=== PATIENT | female | born 1940 | race Caucasian/White ===

== ENCOUNTER 2023-10-23 03:03 | Inpatient (IN) | payer MEDICARE, OTHER, SELFPAY ==
[2023-10-22 21:44] VITALS: BP 197/94
--- NOTE | 2023-10-22 23:46 | ED.GENMED ---
History of Present Illness
<DALLAS Quintana - Last Filed: 10/22/23 23:52>
General
Chief Complaint: Blood Pressure Problem
Source: patient
Exam Limitations: none
Time Seen by Provider: 10/22/23 22:52
Nursing documentation reviewed up to this point in time: agreed with
Travel History
Have you had any contact with someone who has COVID-19?: No
Do you have any symptoms of coronavirus? Fever > 100 degrees, chills, cough, shortness of breath, sore throat, loss of taste or smell, muscle aches, or headache?: No
History of Present Illness
History of Present Illness:
Pt is an 83 yo female with PMH of HTN, HLD, asthma, and takotsubo 2 years ago presents with chest tightness. Pt began taking Levaquin 4 days ago for sinusitis and since then, has noticed some occasional chest tightness and worsening SOB with
activity. This evening, the chest tightness was worse so she checked her BP was systolic BP was in the 190s which concerned her. Denies headache, dizziness, blurry vision. Took her usual dose of amlodipine then came to the ED. Pt has had sinus
pressure, congestion, and cough with her sinusitis. She has taken flonase and NiQuil occasionally for symptoms. Pt does not take an inhaler for her asthma. Denies chest pain, abdominal pain, nausea, vomiting, constipation, diarrhea, sore throat,
syncope.
Past History
<DALLAS Quintana - Last Filed: 10/22/23 23:52>
Past History
ED Past Medical History: Other (Hypertension, previous hernia repair, hyperlipidemia)
Social History
Tobacco: Non-smoker
Alcohol: Occasional
Employment: Employed
Family History
Family History: CAD
Review of Systems
<DALLAS Quintana - Last Filed: 10/22/23 23:52>
Review of Systems
Allergies reviewed?: Yes
All Other Systems: ROS reviewed and negative except as documented in HPI and ROS
Phy Exam
<DALLAS Quintana - Last Filed: 10/22/23 23:52>
General Physical Exam
General Presentation: well appearing and no apparent distress
General Skin: warm and dry
General Mental: alert
General Hydration: appears well hydrated
ENT Exam
ENT Exam: pharynx normal, neck supple, normocephalic, lymphnodes and swallowing well
Eye Exam
Eye Exam: PERRL and conjunctiva normal
Cardiovascular Exam
Cardiovascular Exam: regular rate/rhythm, no edema, no murmur and normal peripheral pulses
Pulmonary Exam
Pulmonary Exam: no respiratory distress, no rales, no crackles, no rhonchi, no stridor, no cough and generalized wheezing
Gastrointestinal Exam
Gastrointestinal Exam: normal bowel sounds, non tender, soft and non distended
Neurological Exam
Neurological Exam: alert, oriented x3 and speech normal
Skin Exam
Skin Exam: normal color and warm/dry
Psychiatric Exam
Psychiatric Exam: normal mood/affect
Course
<DALLAS Quintana - Last Filed: 10/22/23 23:52>
Orders/Labs/Results
Orders:
Orders
10/22/23 21:45
Electrocardiogram (*1) Urgent
Reason for Study: Other
Other Reason for Exam: Chest Tightness
10/22/23 21:46
EKG- Treatment ONCE
10/22/23 23:06
CR Chest - 2 Views Urgent
Comment:
Reason For Exam: CP
10/22/23 23:29
Ipratropium/Albuterol Sulfate [Duoneb] 3 ml INH R NOW ONE
10/22/23 23:46
Complete Blood Count/With Diff Urgent
Comprehensive Metabolic Panel Urgent
NT-proBNP Urgent
TSH Reflex To Free T4 Urgent
Troponin I Urgent
10/23/23 01:39
0.9% Sodium Chloride 1000 ml [Nss] 1,000 ml IV BOLUS
10/23/23 01:46
Aspirin Chewable [Low Strength Aspirin] 324 mg PO NOW STA
Abnormal Lab Results
10/22/23
23:46
MCH 31.6 H pg
(27.0-31.0)
MPV 11.8 H fL
(7.4-10.4)
Absolute Neuts (auto) 6.9 H 10^3/uL
(1.4-6.5)
Absolute Monos (auto) 1.0 H 10^3/uL
(0.1-0.6)
Lymphocytes % 19.2 L %
(20.5-51.1)
BUN 32 H mg/dl
(7-17)
Creatinine 2.4 H mg/dL
(0.6-1.0)
Glucose 104 H mg/dl
(70-99)
Troponin I 0.036 H* ng/ml
10/22/23 23:46
10/22/23 23:46
Vital Signs
Initial and Last Documented VS:
Initial Vital Signs
Temp Pulse Resp BP Pulse Ox
97.6 F 74 22 197/94 97
10/22/23 21:44 10/22/23 21:44 10/22/23 21:44 10/22/23 21:44 10/22/23 21:44
Last Documented Vital Signs
Temp Pulse Resp BP Pulse Ox
97.6 F 59 13 126/63 100
10/22/23 21:44 10/23/23 00:30 10/23/23 00:30 10/23/23 00:30 10/23/23 00:30
<Calli Flores, DO - Last Filed: 10/23/23 01:58>
Orders/Labs/Results
Orders:
Orders
10/22/23 21:45
Electrocardiogram (*1) Urgent
Reason for Study: Other
Other Reason for Exam: Chest Tightness
10/22/23 21:46
EKG- Treatment ONCE
10/22/23 23:06
CR Chest - 2 Views Urgent
Comment:
Reason For Exam: CP
10/22/23 23:29
Ipratropium/Albuterol Sulfate [Duoneb] 3 ml INH R NOW ONE
10/22/23 23:46
Complete Blood Count/With Diff Urgent
Comprehensive Metabolic Panel Urgent
NT-proBNP Urgent
TSH Reflex To Free T4 Urgent
Troponin I Urgent
10/23/23 01:39
0.9% Sodium Chloride 1000 ml [Nss] 1,000 ml IV BOLUS
10/23/23 01:46
Aspirin Chewable [Low Strength Aspirin] 324 mg PO NOW STA
Abnormal Lab Results
10/22/23
23:46
MCH 31.6 H pg
(27.0-31.0)
MPV 11.8 H fL
(7.4-10.4)
Absolute Neuts (auto) 6.9 H 10^3/uL
(1.4-6.5)
Absolute Monos (auto) 1.0 H 10^3/uL
(0.1-0.6)
Lymphocytes % 19.2 L %
(20.5-51.1)
BUN 32 H mg/dl
(7-17)
Creatinine 2.4 H mg/dL
(0.6-1.0)
Glucose 104 H mg/dl
(70-99)
Troponin I 0.036 H* ng/ml
10/22/23 23:46
10/22/23 23:46
Vital Signs
Initial and Last Documented VS:
Initial Vital Signs
Temp Pulse Resp BP Pulse Ox
97.6 F 74 22 197/94 97
10/22/23 21:44 10/22/23 21:44 10/22/23 21:44 10/22/23 21:44 10/22/23 21:44
Last Documented Vital Signs
Temp Pulse Resp BP Pulse Ox
97.6 F 59 13 126/63 100
10/22/23 21:44 10/23/23 00:30 10/23/23 00:30 10/23/23 00:30 10/23/23 00:30
<Calli Flores DO - Last Filed: 10/23/23 01:58>
*Radiology
Radiology exam reviewed: preliminary read by ED provider (Chest x-ray is unremarkable. Unchanged from previous.)
*Pulse Oximetry
Patient hypoxic: no
*EKG
Interpreted by ED Provider?: Yes
Interpretation: normal
Comparison EKG: no changes (Unchanged from previous December 2021)
Rate: normal
Rhythm: sinus
[place]: normal axis
Interval: normal interval
QRS Pattern: normal QRS
Ischemia: no ischemia
*Production Planning Supervisor Interpretation
Rate: normal
Interpretation: normal
Rhythm: sinus
*Critical Care Note
Total Time (30-74mins, 75-104mins- exclusive of procedures): Not Applicable
ED Attending Note
<DALLAS Quintana - Last Filed: 10/22/23 23:52>
-
Portions of this chart may have been created with voice recognition software.� Occasional wrong word or��sound alike� substitutions may have occurred due to the inherent limitations of voice recognition software.
<Calli Flores DO - Last Filed: 10/23/23 01:58>
ED Attending Note
Patient seen and examined by attending physician: Yes
I performed the substantive portion of visit, reviewed & personally made and approve the management plan that is documented in note by myself or ANUPAMA.: Yes
I performed a history and physical exam of patient and discussed management with resident, I reviewed resident's note and agree with documented findings and plan of care.: Yes
ED Attending Note:
This is an 83-year-old woman who resides at home, independently. She has history of hypertension, hyperlipidemia, asthma, history of Takotsubo's cardiomyopathy April 2021 as well as history of hypothyroidism.
She complains of 3-week history of sinus infection with moderate persistent nasal congestion, intermittent dry cough, intermittent shortness of breath. She has not had a fever. Several home COVID-19 test have been negative.
She is prescribed Symbicort inhaler which she generally does not use but has been using sporadically over the past 3 weeks for shortness of breath as well as sporadic albuterol inhaler use.
She states she eventually schedule an appointment with her primary care physician on October 19 and was diagnosed with sinusitis and placed on a 1 week course of Levaquin. With initiation of Levaquin patient has noted intermittent chest
heaviness, pressure that seemed worse and more persistent throughout the day today. No definitive aggravating nor relieving factors but she believes the chest pressure is worse generally an hour after she takes the Levaquin. Chest pressure does
not seem worse with activity, not associated with nausea nor palpitations, she denies dizziness nor lightheadedness. Chest pressure does not seem associated with shortness of breath as well.
She denies leg pain or swelling.
No recent travel.
She notes her son has somewhat similar sinus issues currently but patient symptoms began prior to his.
She has had rare similar episodes of sinus infections perhaps once every 4 to 5 years. She notes she has previously been prescribed Levaquin but it has been at least 5 to 6 years ago.
This evening with ongoing chest pressure patient checked her blood pressure and was concerned when it was elevated 190/100. She states her blood pressure is generally well-controlled. It was mildly elevated at the doctor's office on ,
150/90. She has been taking sporadic doses of NyQuil as well as 1 dose of Mucinex D and occasional Flonase.
She denies headache. Denies dizziness or lightheadedness. No vision difficulty. She has not had a fever nor chills.
83-year-old woman appears somewhat younger than stated age, she is bright and alert, pleasant, appears in no acute distress. Mild nasal, stuffy voice is noted. Able to speak in full sentences. Rare brief dry cough is noted. She is afebrile.
Initial blood pressure 197/94.
HEENT: Moderately boggy turbinates with scant clear rhinorrhea. TMs are clear bilaterally. Posterior pharynx is clear without exudate nor erythema nor ulcerations. Oral mucosa is moist. Pupils equal reactive to light, extraocular muscles intact.
Neck is supple, nontender, no adenopathy nor JVD.
Heart is regular rate and rhythm without murmur nor rub.
Lungs have scattered expiratory wheezing bilaterally throughout lung estrada. No respiratory distress.
Abdomen is soft and nontender.
Extremities without clubbing or cyanosis nor edema. Peripheral pulses are full and equal. Nontender. Good tone.
Skin is warm and dry, normal color. Good turgor. No rash.
Neuro: Awake alert and oriented x 3. No focal neurodeficits. Gait is steady.
Patient is noted to have moderate nasal, stuffy voice consistent with URI. Accelerated hypertension could certainly be secondary to current URI but with chest pressure, shortness of breath must consider ACS, CHF, pneumonia, electrolyte abnormality,
arrhythmia, acute kidney injury. Adverse reaction to Levaquin.
EKG is reassuring showing normal sinus rhythm at 65, normal axis, normal intervals, no acute ST-T wave abnormalities. Similar and unchanged from previous EKG December 2021.
Will check labs including troponin, BNP and will check chest x-ray.
Will trial DuoNeb nebulizer for wheezing.
Will initiate athletic monitor, assess for arrhythmia.
With negative home COVID testing x 3, no indication to repeat. With ongoing symptoms over the past 3 weeks, no reported fever, no indication for influenza testing at this point as well.
10/23/2023 0154 AM
Patient feeling improved after nebulizer treatment. Much less wheezing and hypertension has now normalized. She is currently chest pain-free.
Labs remarkable for moderately elevated creatinine of 2.4. Previously 0.9-1.1. BNP is normal. Troponin is borderline elevated at 0.036.
Chest x-ray is clear, no evidence of infiltrate or CHF. Normal heart size.
Due to mildly elevated troponin and complaints of chest pain must consider ACS.
Elevated troponin could also be related to acute kidney injury. Acute kidney injury could certainly be related to Levaquin thus will discontinue antibiotic and at this point no clear indication for additional antibiotic.
Will give 325 mg chewable aspirin and will give an IV dose of Decadron for wheezing, exacerbation of asthma.
Will initiate IV fluids and will plan to admit to hospitalist service; continue to trend troponin, repeat creatinine, continue nebulizer treatments.
Discharge Plan
Departure
Patient Disposition: Admit
Date of Disposition: 10/23/23
Time of Disposition: 01:53
Admit to: Telemetry
Admit to doctor: Rod
Presentation/result/management discussed w/ accepting MD/DO: Hospitalist
Condition: Fair
Discharge Problem:
Acute asthma exacerbation, Acute kidney injury, chest pain, r/o USA
Prescriptions:
No Action
levothyroxine 75 MCG tablet
75 mcg PO DAILY
brimonidine [Alphagan P] 10 ML drops
1 drp BOTH EYES BID
budesonide-formoterol [Symbicort] 1 PUFF HFA aerosol inhaler
2 puff inhalation R DAILYPRN PRN (Reason: sob)
famotidine 20 MG tablet
20 mg PO DAILY 30 Days Qty: 30 5RF
sacubitril-valsartan [Entresto] 1 TAB tablet
1 tab PO BID 30 Days Qty: 60 5RF
amlodipine 2.5 MG tablet
2.5 mg PO BID 30 Days Qty: 60 5RF
clindamycin HCl 300 MG capsule
300 mg PO TID Qty: 20 0RF
Referrals:
Elisa Sutton MD [Family Provider] -
Interventions
Interventions:
*Risk Screen - Suicide Last Done: 10/22/23 21:44
*General Assessment Last Done: 10/23/23 00:22
*Neglect/Abuse Screening Last Done: 10/22/23 21:44
ED- Fall Risk Assessment Last Done: 10/23/23 00:22
*ED COVID-19 Vaccine History Last Done: 10/23/23 00:22
ED- Cardiac Assessment Last Done: 10/23/23 00:22
ED- Neurological Assessment Last Done: 10/23/23 00:22
ED- Pulmonary Assessment Last Done: 10/23/23 00:22
[2023-10-22 23:51] VITALS: BP 153/76
[2023-10-23] VITALS (18 sets, daily range): BP systolic 118–182; BP diastolic 56–104; BMI 26.9; BMI 26.5
[2023-10-23 00:11] LABS: % Basophils 0.8 % (0-2); % Eosinophils 5.4 % (0-6); % Immature Granulocytes 0.3 % (0-0.5); % Lymphocytes 19.2 % (20.5-51.1); % Neutrophils 65.3 % (42.2-75.2); Absolute Basophils 0.1 10^3/uL (0-0.2); Absolute Eosinophils 0.6 10^3/uL (0-0.7); Absolute Neutrophils 6.9 10^3/uL (1.4-6.5); Hemoglobin 13.7 g/dL (12.0-16.0); Mean Corp Hgb Conc. 34.3 g/dL (33.0-37.0); Mean Corpuscular Hgb 31.6 pg (27.0-31.0); Mean Corpuscular Volume 92.2 fL (81.0-99.0); Mean Platelet Volume 11.8 fL (7.4-10.4); Nucleated Red Blood Cells % 0 %; Platelet Count 229 10^3/uL (130-400); Red Blood Cell Count 4.34 10^6/uL (4.20-5.40); Red Cell Dist. Width 13.7 % (11.5-14.5); White Blood Cell Count 10.6 10^3/uL (4.8-10.8)
[2023-10-23] MEDS: DUONEB 3 ML INH (00:19)
[2023-10-23 00:31] LABS: ALT (SGPT) 20 U/L (0-35); AST (SGOT) 24 U/L (14-36); Albumin 3.9 g/dl (3.5-5.0); Alkaline Phosphatase 63 U/L (38-126); Blood Urea Nitrogen 32 mg/dl (7-17); Calcium 9.6 mg/dl (8.4-10.2); Carbon Dioxide 23 mmol/L (22-30); Chloride 104 mmol/L (98-107); Glucose 104 mg/dl (70-99); Potassium 4.6 mmol/L (3.5-5.1); Sodium 141 mmol/L (135-145); Total Bilirubin 0.4 mg/dl (0.2-1.3); Total Protein 6.6 g/dl (6.3-8.2); eGFR 19.79
[2023-10-23 01:23] LABS: NT-proBNP 124 pg/ml; Troponin I 0.036 ng/ml
[2023-10-23] MEDS: DECADRON 10 MG IV (02:21)
[2023-10-23] MEDS: NSS 1000 IV (02:22)
[2023-10-23] MEDS: LOW STRENGTH ASPIRIN 324 MG PO (02:22)
--- NOTE | 2023-10-23 02:35 | HPS.HSE ---
Family Physician
-
Family Physician: Elisa Sutton MD
Chief Complaint
-
Chest Pain
History of Present Illness
Patient is an 83y F with PMH significant for Takotsubo's cardiomyopathy with recovered EF, CKD III and hypothyroidism who presents to ED complaining of chest pain. Patient states that she has had nasal congestion and sinus pressure for the past
3 weeks or so. She has noted some increased SOB - especially with activity - that she has attributed to his congestion. She has had some mild, non-productive cough. Loss of taste and smell. She denies any fevers / chills, GI or complaints.
She was seen by her PCP on and prescribed levofloxacin for a sinus infection.
Patient states that she has since developed chest tightness and worsening SOB. Her symptoms seem to occur about one hour after taking the levofloxacin.
She denies any prior history of similar symptoms.
This evening, patient developed severe chest tightness across the front of the chest / bilaterally. She had difficulty breathing.
She checked her BP at home (multiple times) and it was very elevated - as high as 195/105. Patient then presented to the ED for further evaluation.
Patient was treated in the ED with DuoNeb and steroids.
Currently she is resting comfortably. She denies any current chest pain and denies any dyspnea while at rest.
Her BP has markedly improved from initial presentation.
Medical History
Past Medical History
Past Medical History: Reports Other
Additional Past Medical History:
Takotsubo's Cardiomyopathy with Recovered EF
Glaucoma
Benign Hypertension
CKD III
Mild Intermittent Asthma
Hypothyroidism
Past Surgical History: Reports Other
Additional Past Surgical History:
Tubal Ligation
Right Inguinal Herniorrhaphy
Hammer Toe Repair
Left Knee Arthroscopy
Cardiac Cath (no stents)
Cataracts
Social History
Tobacco: Non-smoker
Alcohol: Occasional (Rarely)
Drug: None
Family History
Family History: Not pertinent
Allergies / Home Medications
Allergies reflects when Allergies were last updated in [email or web address].
Home Medications with original date entered in [email or web address]
Allergy/Medication List:
Allergies
Allergy/AdvReac Type Severity Reaction Status Date / Time
amoxicillin Allergy Unknown Verified 10/22/23 21:47
Home Medications
levothyroxine 75 mcg tablet 75 mcg PO DAILY Thyroid 04/10/15
brimonidine 0.1 % eye drops (Alphagan P) 1 drp BOTH EYES BID Eye condition 04/28/21
amlodipine 2.5 mg tablet 2.5 mg PO BID 30 days #60 tabs 04/29/21
sacubitril 49 mg-valsartan 51 mg tablet (Entresto) 1 tab PO BID 30 days #60 tabs 04/29/21
ezetimibe 10 mg tablet 10 mg PO DAILY 10/23/23
montelukast 10 mg tablet 10 mg PO HS 10/23/23
Review of Systems
-
History Source: Patient
A 12 point ROS was completed and negative except as noted: Yes
Constitutional: Reports Fatigue; Denies Fever or Chills
EENT: Reports Other (nasal congestion); Denies Sore Throat
Respiratory: Reports Cough and Trouble Breathing; Denies Hemoptysis
Cardiac: Reports Chest Pain; Denies Diaphoresis, Palpitations or Syncope
Abdomen/GI: Denies Abdominal Pain, Nausea, Vomiting or Diarrhea
: Denies Dysuria, Frequency or Flank Pain
Neurological: Denies Dizzy or Headache
Psych: Reports Anxiety; Denies Depression
Physical Exam
Vital Signs
Vital Signs
Temp Pulse Resp BP Pulse Ox
97.6 F 59 17 128/67 98
10/22/23 21:44 10/23/23 02:30 10/23/23 02:30 10/23/23 02:00 10/23/23 02:30
Physical Exam
General: Other (83y F in no distress.)
HEENT: Moist mucous membranes and PERRLA
Respiratory: Clear; No Wheezes, Rales or Rhonchi
Cardiac: S1/S2 and Regular Rhythm; No Murmur
GI: Soft, Non Tender, Non Distended and Normal Bowel Sounds
Musculoskeletal: No Clubbing, No Cyanosis and No Edema
Neuro: AO x 3
Laboratory Results
-
10/22/23 23:46
10/22/23 23:46
Laboratory Results
Total Bilirubin 0.4 mg/dl (0.2-1.3) 10/22/23 23:46
AST 24 U/L (14-36) 10/22/23 23:46
ALT 20 U/L (0-35) 10/22/23 23:46
Alkaline Phosphatase 63 U/L (38-126) 10/22/23 23:46
Troponin I 0.036 ng/ml H* 10/22/23 23:46
Impression/Plan
-
A/P: Patient is an 83y F with PMH significant for Takotsubo's cardiomyopathy, hypertension and mild intermittent asthma who presents to ED complaining of chest pain and SOB.
Chest Pain
History of Non-Ischemic Cardiomyopathy with Recovered EF
- Admit for further evaluation and treatment.
- Pain has resolved since presentation.
- Troponin mildly elevated at 0.036 - continue to trend to peak.
- EKG without evident ischemic changes.
- Monitor on telemetry.
- Continue daily ASA.
- Update Echo with chest pain and dyspnea.
- Cardiology evaluation for additional work-up / recommendations.
- ? relationship to levofloxacin as patient notes temporal association. QTc is unremarkable on initial EKG.
Accelerated Hypertension
- Marked elevation in BP at home and on presentation.
- This has completely resolved with improvement in chest pain and dyspnea.
- Continue usual home BP med regimen for now.
- Adjust as needed for adequate BP control.
- ? BP elevation secondary to chest pain or vice versa.
SOB
- Patient reportedly wheezing on arrival though her lungs are clear at present and she is in no distress.
- Has a dx of asthma, but takes only montelukast daily and never uses her rescue inhaler.
- Monitor off of systemic steroids or further abx for now.
- Follow for any recurrent dyspnea, wheezing, etc.
- Albuterol PRN.
NANCY on CKD III
- Unclear baseline SCr.
- Patient states that it has been up and down over the past few years.
- She indicates that her most recent check - in the past few months - was 'normal'.
- Hold Entresto for now.
- Follow for improvement in renal function / establish current baseline over the next 24-48 hours.
Sinus Congestion
- Discontinue abx.
- Nasal saline spray as needed for congestion.
- Follow for new / worsening symptoms.
Hypothyroidism
- Stable. TSH is normal.
- Continue current T4 replacement.
Glaucoma
- Continue Alphagan.
DVT Prophylaxis: Subcut Heparin
Code Status: Full
[2023-10-23 03:20] LABS: COVID-19 Antigen Negative (Negative)
[2023-10-23 06:03] LABS: Hematocrit 39.8 % (37.0-47.0); Hemoglobin 13.2 g/dL (12.0-16.0); Mean Corp Hgb Conc. 33.2 g/dL (33.0-37.0); Mean Corpuscular Hgb 31.3 pg (27.0-31.0); Mean Corpuscular Volume 94.3 fL (81.0-99.0); Mean Platelet Volume 11.7 fL (7.4-10.4); Platelet Count 196 10^3/uL (130-400); Red Blood Cell Count 4.22 10^6/uL (4.20-5.40); Red Cell Dist. Width 13.8 % (11.5-14.5); White Blood Cell Count 6.9 10^3/uL (4.8-10.8)
[2023-10-23 06:28] LABS: Blood Urea Nitrogen 28 mg/dl (7-17); Calcium 9.4 mg/dl (8.4-10.2); Carbon Dioxide 20 mmol/L (22-30); Chloride 107 mmol/L (98-107); Estimated Creatinine Clearance 24 ml/min; Glucose 136 mg/dl (70-99); Potassium 4.2 mmol/L (3.5-5.1); Sodium 140 mmol/L (135-145); eGFR 27.96
[2023-10-23 06:39] LABS: Troponin I 0.139 ng/ml
[2023-10-23] MEDS: ZETIA 10 MG PO (07:29)
[2023-10-23] MEDS: HEPARIN 5000 UNITS SC ×2 (07:30→19:46)
[2023-10-23] MEDS: NORVASC 2.5 MG PO ×2 (07:30→10:04)
[2023-10-23] MEDS: LOW STRENGTH ASPIRIN 81 MG PO (07:30)
[2023-10-23] MEDS: SYNTHROID 75 MCG PO (07:30)
[2023-10-23] MEDS: ALPHAGAN P 0.1% EYE DROPS 1 DROP BOTH EYES ×2 (07:31→19:46)
--- NOTE | 2023-10-23 08:45 | CON.CAR ---
Addendum entered and electronically signed by Zelalem Patel MD 10/23/23 10:26:
83 yo female with PMH of Takutsubo, with improved LVEF, HTN admitted with chest tightness, NANCY, elevated troponin. She was being treated for sinusitis with Levaquin as outpatient. She started to experience chest tightness and extreme fatigue and
presented to the ED. Exam with RRR, no murmurs, no edema.
Chest tightness. With elevated troponin. Doubt ACS. Check echo. Trend troponin.
HTN. Also with NANCY. Entresto stopped. Increase amlodipine to 5mg. Trend BP: will add hydralazine if remains high.
Original Note:
Consultation
Consultation Request
Date/Time Consultation Requested: 10/23/23 4:50a
Date/Time Consultation Performed: 10/23/23 8:30a
Requesting Provider: Dr. Velasco
Performing Provider: BLAS Barragan for Dr. Patel
Reason for Consultation: chest pain
Medical History
-
Chief Complaint: sob/chest pain
History of Present Illness:
Mrs. Qureshi is an 83 yo female with Takutsubo cardiomyopathy, EF 40% now improved to 65-70%, sinus bradycardia, HTN, PAC's, mild to moderate TR, mild pulmonary HTN, Raynaud's, mild PAD (Dr Hinkle), and asthma, who presents to the ER with c/o chest
tightness, SOB and high BP (195/105 at home). She reports having a sinus infection, symptoms for 2 weeks and started on Levaquin 4 days ago by PCP. She noted 3 days ago, after taking Levaquin, she would feel mild SOB and chest tightness at rest,
no worse with exertion. Currently denies any chest tightness or SOB at rest. She is admitted to the hospitalist service and we are consulted for chest tightness. CXR shows NAD, NANCY with creatinine initially 2.4 and now 1.8 today, EKG with NSR no
ischemia and troponin trend 0.036, 0.139.
Past Medical History
Past Medical History: Other (as above)
Past Surgical History: Gynecological (tubal ligation), Orthopedic (left knee meniscus tear repair) and Other (hernia repair)
Social History
Tobacco: Non-Smoker
Alcohol: None
Living: Alone
Family History
Family History: Reviewed & Not Pertinent
Allergies / Home Medications
Allergy/AdvReac Type Severity Reaction Status Date / Time
amoxicillin Allergy Unknown Verified 10/22/23 21:47
Medication Instructions Recorded Confirmed Type
levothyroxine 75 mcg tablet 75 mcg PO DAILY Thyroid 04/10/15 10/23/23 History
brimonidine 0.1 % eye drops 1 drp BOTH EYES BID Eye condition 04/28/21 10/23/23 History
(Alphagan P)
sacubitril 49 mg-valsartan 51 mg 1 tab PO BID 30 days #60 tabs 04/29/21 10/23/23 Rx
tablet (Entresto)
amlodipine 2.5 mg tablet 2.5 mg PO DAILY 10/23/23 10/23/23 History
ezetimibe 10 mg tablet 10 mg PO DAILY 10/23/23 10/23/23 History
montelukast 10 mg tablet 10 mg PO HS 10/23/23 10/23/23 History
Review of Systems
-
History Source: Patient
All other systems: Negative unless noted
Physical Exam
Vital Signs
Temp Pulse Resp BP Pulse Ox
97.9 F 95 18 179/84 98
10/23/23 07:15 10/23/23 08:30 10/23/23 07:15 10/23/23 07:30 10/23/23 08:36
Lab Results
10/23/23 05:37
10/23/23 05:37
Troponin I 0.139 ng/ml H* D 10/23/23 05:37
Rma-L-Drypffdwwtn Pept 124 pg/ml 10/22/23 23:46
Physical Exam
General: Well Developed, Well Nourished and No Apparent Distress
HEENT: Normocephalic, Anicteric and Moist Mucous Membranes
Respiratory: Clear and Non Labored Respirations
Cardiac: S1/S2 and Regular Rhythm
Breast: Deferred by me
GI: Soft, Non Tender, Non Distended and Normal Bowel Sounds
Rectal: Deferred by Provider
Musculoskeletal: No Clubbing, No Cyanosis and No Edema
Skin: Warm and Dry
Neuro: AO x 3
Psych: Calm
Impression / Plan
-
Chest tightness - acute non-ischemic myocardial injury in the setting of NANCY.
- occurs at rest, not with exertion.
- EKG w/o ischemia.
- denies chest tightness or SOB at rest.
- check echo.
HTN - elevated upon arrival.
- continue Amlodipine 2.5mg, ordered BID now and she takes it daily at home.
- previously on BID dosing and experienced symptomatic hypotension.
- monitor closely, especially with Entresto being held.
Takotsubo cardiomyopathy - resolved with normalized EF.
- Entresto on hold due to NANCY.
- no BB due to sinus bradycardia.
NANCY - acute.
- creatinine 2.4 on arrival.
- now down to 1.8.
- holding Entresto.
HLD - stable on Zetia.
Asthma/sinus infection - per hospitalist.
Data Reviewed
-
EKG: Tracing Personally Visualized and interpreted (EKG: sinus rhythm with sinus arrhythmia 68 bpm, no ischemia)
Radiology: Report Reviewed by me (CXR NAD)
Medical Tests (Nuc Med, Echo etc): Report Reviewed by me (Echo (07/29/21): EF 65-70%, mild MR, nl RV, mild TR, PASP 45) and Other (Cath (04/28/21): no CAD, separate ostia of LAD and Lcx noted, EF 35%. Lexiscan nuclear stress (03/05/21): no CP or EKG
changes, normal perfusion, EF 60%. )
Labs: Labs Reviewed by me
Old Records: Reviewed
[2023-10-23 09:49] LABS: Urine Albumin Negative (Neg - Trace); Urine Bilirubin Negative (Negative); Urine Character Clear (Clear); Urine Color Yellow; Urine Glucose Negative (Negative); Urine Ketone Negative (Negative); Urine Leukocyte Negative (Negative); Urine Nitrite Negative (Negative); Urine Occult Blood Trace (Negative); Urine Specific Gravity 1.015 (<1.030); Urine Urobilinogen Negative (Neg - 1+)
[2023-10-23 10:13] LABS: Urine Red Blood Cell 0-2 /HPF (0-2)
--- NOTE | 2023-10-23 12:27 | PTCARENOTE ---
Rec'd pt this shift awake and alert in bed. Pt NSR on monitor. BP elevated this am. AM meds given. Troponin sent. See worklist for VS/I and O and assessments.
[2023-10-23] MEDS: APRESOLINE 10 MG PO ×3 (12:31→22:17)
[2023-10-23 12:34] LABS: Troponin I 0.082 ng/ml
--- NOTE | 2023-10-23 13:25 | CM ---
Chart reviewed. Patient is independent of ADLS, lives alone in a 2 STH, 1 NILDA, 0 DME. Patient currently with no discharge needs. Plan is for the patient to return home. CM to follow
--- NOTE | 2023-10-23 16:19 | W.PN.UPDATE ---
Update Note
Progress Note Update
Patient seen and examined at bedside today. This note serves as supplemental to already noted history and physical today. Doubt ACS. Check echocardiogram. Trend troponin until plateaus. Noted to have NANCY, holding nephrotoxic agents including
Entresto. Blood pressure control, increase amlodipine to 5 mg. Shortness of breath improved, most likely secondary to hypertensive urgency. Chest pain, noted to be chest tightness rather than chest pain as per patient.
--- NOTE | 2023-10-23 17:26 | PTCARENOTE ---
Pt states she was on Antibiotics for sinusitis. Dr. Montanez notified and aware. As per , pt does not need antibiotic at this time.
[2023-10-23] MEDS: TYLENOL 650 MG PO (19:46)
[2023-10-23] MEDS: SINGULAIR 10 MG PO (22:17)
[2023-10-23] MEDS: VENTOLIN NEBULES 2.5 MG INH (22:31)
[2023-10-24] VITALS (8 sets, daily range): BP systolic 121–166; BP diastolic 65–87; PULSE 65–76; BMI 26.4
[2023-10-24 03:45] LABS: Hematocrit 39.1 % (37.0-47.0); Hemoglobin 13.3 g/dL (12.0-16.0); Mean Platelet Volume 11.8 fL (7.4-10.4); Platelet Count 211 10^3/uL (130-400); Red Blood Cell Count 4.16 10^6/uL (4.20-5.40); Red Cell Dist. Width 13.9 % (11.5-14.5)
[2023-10-24 04:13] LABS: Blood Urea Nitrogen 25 mg/dl (7-17); Calcium 9.6 mg/dl (8.4-10.2); Carbon Dioxide 22 mmol/L (22-30); Chloride 104 mmol/L (98-107); Estimated Creatinine Clearance 43 ml/min; Glucose 127 mg/dl (70-99); Magnesium 2.1 mg/dl (1.6-2.3); Potassium 4.4 mmol/L (3.5-5.1); Sodium 138 mmol/L (135-145)
--- NOTE | 2023-10-24 05:26 | PTCARENOTE ---
Orthos obtained per order--negative. Pt denies any chest pain or tightness. Tele remains Beny/ sinus arrhythmia. Patient ambulating self in room, denies any dizziness. Call packer within reach.
--- NOTE | 2023-10-24 08:07 | W.PN.CD ---
Today's Communication / Plan
-
- increase hydralazine while amlodipine comes on board
- no further inpatient workup anticipated and I will sign off
- MEDS: amlodipine 5 po qd, hydralazine 25 po TID, ASA 81, Zetia 10 (hold Entresto)
- Follow up: Nov 07 at 10:40 with Max Blount
Impression / Plan
-
83 yo female with PMH of Takutsubo, with improved LVEF, HTN admitted with chest tightness, NANCY, elevated troponin. She was being treated for sinusitis with Levaquin as outpatient.� She started to experience chest tightness and extreme fatigue and
presented to the ED.�
Chest tightness - acute non-ischemic myocardial injury in the setting of NANCY & hypertension. [facility] 2020 normal coronaries
- peak troponin 0.129
- Echo without WMA
- treat BP
HTN - elevated
- ARNi held for NANCY
- increase hydralazine while amlodipine comes on board
Takotsubo cardiomyopathy - resolved with normalized EF.
- Entresto on hold due to NANCY.
- no BB due to sinus bradycardia.
NANCY - acute.
- creatinine 2.4 on arrival. Now 1.0
- holding Entresto.
HLD - stable on Zetia.
Asthma/sinus infection - per hospitalist.
Dispo
- no further inpatient workup anticipated and I will sign off
- MEDS: amlodipine 5 po qd, hydralazine 25 po TID, ASA 81, Zetia 10 (hold Entresto)
- Follow up: Nov 07 at 10:40 with Max Blount
Subjective: No CP, palps. Still with will dyspnea that she feels us due to sinusitis
Data
TTE Oct 23: Normal
[facility] 2020: normal coronaries, EF 35% with Takotsubo pattern
Laboratory Data
10/23/23 10/24/23
05:37 03:32
Hgb 13.3
Creatinine 1.0
Troponin I 0.139 H* D
Selected Entries
10/23/23
22:17 10/24/23
03:21 10/24/23
03:24
Blood pressure 163/80 163/71 159/82
10/24/23
03:26
Blood pressure 166/87
Generic Name Dose Route Start Last Admin
Trade Name Elsa PRN Reason Stop Dose Admin
Ezetimibe 10 mg 10/23/23 08:00
Ezetimibe (Zetia) 10 Mg Tablet PO 11/20/23 07:59
DAILY DELFINA
Aspirin 81 mg 10/23/23 08:00
Aspirin 81 Mg Chewable Tablet PO 11/20/23 07:59
DAILY DELFINA
Amlodipine Besylate 5 mg 10/24/23 08:00
Amlodipine 5 Mg Tablet PO 11/21/23 07:59
DAILY DELFINA
Hydralazine HCl 10 mg 10/23/23 16:00
Hydralazine 10 Mg Tablet PO 11/20/23 15:59
TID DELFINA
Physical Exam
Vital Signs/Labs
Vital Signs
Temp Pulse Resp BP Pulse Ox
36.6 C 75 18 166/87 98
10/24/23 03:21 10/24/23 03:26 10/24/23 03:21 10/24/23 03:26 10/24/23 03:21
10/23/23 10/24/23 10/25/23
06:59 06:59 06:59
Actual Weight 169 lb 1.513 oz 168 lb 3.403 oz
10/24/23 03:32
10/24/23 03:32
Magnesium 2.1 mg/dl (1.6-2.3) 10/24/23 03:32
10/22/23
23:46
Wmw-G-Anorzwsimwr Pept 124
LAB Results
10/22/23 10/23/23 10/23/23
23:46 05:37 11:42
Troponin I 0.036 H* 0.139 H* D 0.082 H* D
10/23/23
18:28
Troponin I Cancelled
Physical Exam
Constitutional: No acute distress
EENT: Anicteric and Moist mucous membranes
Cardiovascular: Rhythm & rate is regular, Pedal edema is absent, Systolic murmur absent and Diastolic murmur absent
Respiratory: Respiratory effort normal
GI: Soft, Distention absent, Non tender and Normal bowel sounds
Neuro/Psych: Alert
Other: Skin
Data Reviewed
-
Date of Service: October 24, 2023
[2023-10-24] MEDS: ALPHAGAN P 0.1% EYE DROPS 1 DROP BOTH EYES (08:47)
[2023-10-24] MEDS: SYNTHROID 75 MCG PO (08:49)
[2023-10-24] MEDS: LOW STRENGTH ASPIRIN 81 MG PO (08:50)
[2023-10-24] MEDS: NORVASC 5 MG PO (08:50)
[2023-10-24] MEDS: ZETIA 10 MG PO (08:50)
[2023-10-24] MEDS: HEPARIN 5000 UNITS SC (09:16)
[2023-10-24] MEDS: APRESOLINE 25 MG PO ×2 (10:28→15:20)
[2023-10-24] MEDS: APRESOLINE PO (10:30)
--- NOTE | 2023-10-24 10:42 | CM ---
Chart reviewed. Patient is independent of ADLS, lives alone in a 2 STH, 1 NILDA, 0 DME. Patient currently with no discharge needs. CM to follow
--- NOTE | 2023-10-24 14:49 | W.PN.HOSP.TC ---
Addendum entered and electronically signed by Harsha Montanez MD 10/27/23 15:59:
Non IA troponin elevation
Addendum entered and electronically signed by Harsha Montanez MD 10/25/23 17:16:
[id number]
Original Note:
Today's Communication/Plan
-
Aspirin, hydralazine 20 mg 3 times daily, amlodipine 5 mg daily
Follow cardiology outpatient
Follow CBC, BMP outpatient
Follow PCP within 1 week
Assessment / Plan
Assessment / Plan
Constitutional: No acute distress
EENT: Anicteric and Moist mucous membranes
Cardiovascular: Rhythm & rate is regular, Pedal edema is absent, Systolic murmur absent and Diastolic murmur absent
Respiratory: Respiratory effort normal
GI: Soft, Distention absent, Non tender and Normal bowel sounds
Neuro/Psych: Alert
Other: Skin
A/P:� Patient is an 83y F with PMH significant for Takotsubo's cardiomyopathy, hypertension and mild intermittent asthma who presents to ED complaining of chest pain and SOB.
Chest tightness
History of Non-Ischemic Cardiomyopathy with Recovered EF
�-Echo without wall motion abnormality
� Most likely secondary to elevated blood pressures
� Treat hypertension
#Hypertensive urgency
� Holding ARNI
� Increase amlodipine to 5 mg daily
Increase hydralazine 25 mg 3 times daily
� Follow cardiology outpatient
#Leukocytosis
� No evidence of infection, follow-up CBC outpatient
#NANCY on CKD 3
� Holding Entresto
Suspect due to hypertension
� Follow BMP outpatient, can resume as per cardiology
#Takotsubo's cardiomyopathy
Resolved with normal EF
� Holding Entresto due to NANCY
� No beta-delia due to sinus bradycardia
Sinus Congestion
�- Discontinue abx. Educated that patient received 4 days antibiotics and most likely will not need further antibiotics. If symptoms begin again, follow-up PCP for repeat Thomas course of antibiotics
Hypothyroidism
�- Stable.� TSH is normal.
�- Continue current T4 replacement.
Glaucoma
�- Continue Alphagan.
DVT Prophylaxis:� Subcut Heparin
Code Status:� Full
More than 30 minutes spent in discharge including
Final examination of the patient
Summarizing hospital stay
Instructions for continuing care to all relevant caregivers
Preparation of discharge records, prescriptions, and referral forms
Total time spent (35 in minutes):
Anticipated Discharge: Today
Subjective/Interval History
-
Date of Service: October 24, 2023
No acute events overnight
Objective Data
-
Labs:
Laboratory Results
10/24/23
03:32
WBC 11.0 H
Hgb 13.3
Hct 39.1
Plt Count 211
Sodium 138
Potassium 4.4
Chloride 104
Carbon Dioxide 22
BUN 25 H
Creatinine 1.0
Glucose 127 H
Calcium 9.6
Vital Signs:
Vital Signs
Temp Pulse Resp BP Pulse Ox
97.8 F 58 20 121/65 97
10/24/23 12:50 10/24/23 12:53 10/24/23 12:50 10/24/23 12:53 10/24/23 12:53
I&O
10/23/23 10/24/23 10/25/23
06:59 06:59 06:59
Intake Total 1750 / 1750
Balance 1750 / 1750
Review of Systems
-
History Source: Patient
All other systems: Not reviewed unless documented
Data Reviewed
-
Diagnostic Radiology: Image personally visualized and interpreted and Report Reviewed by me
Labs: Labs Reviewed by me
--- NOTE | 2023-10-24 14:53 | W.DS.TRANS ---
DC Summary - Race [employer]
-
Discharge Instructions:
Discharge Diagnosis/Procedures Chest tightness
History of Non-Ischemic Cardiomyopathy with
Recovered EF
Hypertensive urgency
Diet Low Fat,Low Cholesterol
Activity As tolerated
Blood Work cbc, bmp in 3-5 days with pcp
Instructions:
Stand-Alone Forms:
Changes to Home Medications: Yes
Discharge Medications:
DC Medications w/original date entered in [facility]
levothyroxine 75 mcg tablet 75 mcg PO DAILY Thyroid 04/10/15
brimonidine 0.1 % eye drops (Alphagan P) 1 drp BOTH EYES BID Eye condition 04/28/21
sacubitril 49 mg-valsartan 51 mg tablet (Entresto) 1 tab PO BID 30 days #60 tabs 04/29/21
ezetimibe 10 mg tablet 10 mg PO DAILY High Cholesterol 10/23/23
montelukast 10 mg tablet 10 mg PO HS Allergies 10/23/23
amlodipine 5 mg tablet 5 mg PO DAILY 30 days #30 tabs 10/24/23
aspirin 81 mg chewable tablet (Children's Aspirin) 81 mg PO DAILY 30 days #30 tabs 10/24/23
hydralazine 25 mg tablet 25 mg PO TID 30 days #90 tabs 10/24/23
Home Medication Changes
Hold Entresto
Start:
amlodipine 5 mg tablet 5 mg PO DAILY 30 days #30 tabs 10/24/23
aspirin 81 mg chewable tablet (Children's Aspirin) 81 mg PO DAILY 30 days #30 tabs 10/24/23
hydralazine 25 mg tablet 25 mg PO TID 30 days #90 tabs 10/24/23
Pending Results: No
--- NOTE | 2023-10-25 08:21 | PN.CDI ---
CDI
- -
CDI:
Physician Documentation Request
Admit Date: 10/23/23 03:03
Dear Doctor Tarik,
Patient admitted with hypertensive urgency and NANCY.
Patient experienced chest tightness.
Troponin's resulted as follows:
Laboratory Tests
10/22/23 10/23/23 10/23/23
23:46 05:37 11:42
Troponin I 0.036 H* 0.139 H* D 0.082 H* D
Based on the above, could you provide a diagnosis for the elevated troponin:
Non HI troponin elevation
Type II HI demand ischemia
Other
Use of terms such as suspected, likely, concern for, or probable (associated with a specific diagnosis that is being evaluated, monitored, or treated as if it exists) are acceptable and can be coded in the inpatient setting, when documented at the
time of discharge.
Thank you,
Leila Ayala RN, BSN
CDI Specialist
tiger text
Please use your independent medical judgment in providing your response.
== END 2023-10-24 15:49 | disposition home or self-care (01) | DRG 683 ==
LOC: IVU 03:03
PROVIDERS: ADMITTING PHYSICIAN Hospitalist; ATTENDING PHYSICIAN Internal Medicine; EMERGENCY PHYSICIAN Emergency Medicine; FAMILY PHYSICIAN Emergency Medicine; OTHER PHYSICIAN Internal Medicine
DX: I12.9 Hypertensive chronic kidney disease with stage 1 through stage 4 chronic kidney disease, or unspecified chronic kidney disease (principal); I51.81 Takotsubo syndrome; N17.9 Acute kidney failure, unspecified; J45.21 Mild intermittent asthma with (acute) exacerbation; I5A Non-ischemic myocardial injury (non-traumatic); N18.30 Chronic kidney disease, stage 3 unspecified; E03.9 Hypothyroidism, unspecified; H40.9 Unspecified glaucoma; E78.5 Hyperlipidemia, unspecified; I16.0 Hypertensive urgency
CPT/HCPCS: 71046; 80048; 80053; 81003; 81015; 83735; 83880; 84443; 84484; 85025; 85027; 87811; 93005; 93306; 94640; 96361; 96374; 99285

== ENCOUNTER 2023-10-28 20:34 | Emergency (ER) | payer MEDICARE, OTHER, SELFPAY ==
[2023-10-28 20:34] VITALS: BMI 27.3
[2023-10-28 20:40] VITALS: BP 186/85
[2023-10-28 21:43] LABS: % Eosinophils 6.8 % (0-6); % Immature Granulocytes 0.4 % (0-0.5); % Lymphocytes 28.7 % (20.5-51.1); % Monocytes 10.1 % (1.7-9.3); Absolute Basophils 0.1 10^3/uL (0-0.2); Absolute Eosinophils 0.5 10^3/uL (0-0.7); Absolute Lymphocytes 2.2 10^3/uL (1.2-3.4); Absolute Monocytes 0.8 10^3/uL (0.1-0.6); Absolute Neutrophils 4.1 10^3/uL (1.4-6.5); Hematocrit 38.8 % (37.0-47.0); Hemoglobin 13.2 g/dL (12.0-16.0); Mean Corpuscular Hgb 31.7 pg (27.0-31.0); Mean Corpuscular Volume 93.3 fL (81.0-99.0); Mean Platelet Volume 11.7 fL (7.4-10.4); Nucleated Red Blood Cells % 0 %; Platelet Count 217 10^3/uL (130-400); Red Blood Cell Count 4.16 10^6/uL (4.20-5.40); Red Cell Dist. Width 13.7 % (11.5-14.5); White Blood Cell Count 7.6 10^3/uL (4.8-10.8)
--- NOTE | 2023-10-28 21:54 | ED.GENMED ---
History of Present Illness
General
Chief Complaint: Blood Pressure Problem
Source: patient and family (Daughter)
Exam Limitations: none
Time Seen by Provider: 10/28/23 21:29
Nursing documentation reviewed up to this point in time: agreed with
Travel History
Have you had any contact with someone who has COVID-19?: No
Do you have any symptoms of coronavirus? Fever > 100 degrees, chills, cough, shortness of breath, sore throat, loss of taste or smell, muscle aches, or headache?: No
History of Present Illness
History of Present Illness:
83-year-old female with a past medical history of hypertension and hyperlipidemia who presents to the emergency room for evaluation of hypertension. Patient was notably just admitted to this hospital 10/23/2023 until 10/24/2023. She was admitted
with some mild chest pain and marginal troponin elevation but mainly for hypertensive urgency (elevated troponin was thought to be related to hypertension). She also had an NANCY. She had her blood pressure medications adjusted�Entresto was
discontinued and she was started on amlodipine at a dose of 5 mg daily and hydralazine at a dose of 25 mg 3 times daily. She has been taking her medications as instructed. She says that she has been monitoring her blood pressure very closely since
discharge and she notices that it it has been persistently elevated. She does admit that she has significant anxiety related to her blood pressure. She says that she has occasionally gotten readings as high as the 180s and tonight she had a
reading that was 195 systolic and finally decided to come to the emergency room. She says that every once in a while she has some mild dizziness or mild chest discomfort that is nonexertional. She has none of the symptoms tonight. She is not sure
whether they may be related to anxiety. Here in the emergency room she is quite comfortable denies chest pain, shortness of breath, nausea, vomiting, diaphoresis, dizziness, focal weakness or numbness, change in vision or speech.
Past History
Past History
ED Past Medical History: Other (Hypertension, previous hernia repair, hyperlipidemia)
Social History
Tobacco: Non-smoker
Alcohol: Occasional
Employment: Employed
Family History
Family History: CAD
Review of Systems
Review of Systems
All Other Systems: ROS reviewed and negative except as documented in HPI and ROS
Constitutional: Denies fever or chills
Respiratory: Denies cough or trouble breathing
Cardiac: Denies chest pain or diaphoresis
ABD/GI: Denies abdominal pain, nausea or vomiting
: Denies flank pain
Musculoskeletal: Denies edema, neck pain or back pain
Neurological: Denies headache
Phy Exam
Physical Exam
Physical Exam:
General: Awake, alert, oriented x3; somewhat anxious no acute distress
Head: Normocephalic, atraumatic
Eyes: Conjunctiva normal, EOMI, pupils equal round reactive to light bilaterally
Throat: Airway intact, handling secretions
Neck: Trachea midline, supple without meningismus
Lungs: Clear to auscultation bilaterally, no wheezing, rales, rhonchi
Heart: Regular rate and rhythm, no murmurs, gallops, or rubs
Abd: Soft, non distended, nontender
Neuro: Cranial nerves grossly intact, speech fluid
Skin: no rash
Extremities: No edema in extremities, equal pulses in all extremities
Scores
Heart Failure Risk
Heart Failure Risk Score: Not Applicable
Heart Score for Chest Pain Patients
STEMI patient?: Not applicable
Withdrawal Assessment of Alcohol
Withdrawal Assessment Completed?: Not applicable
Course
Orders/Labs/Results
Orders:
Orders
10/28/23 20:45
Electrocardiogram (*1) Urgent
Reason for Study: Chest Pain
EKG- Treatment ONCE
10/28/23 21:30
Complete Blood Count/With Diff Urgent
Comprehensive Metabolic Panel Urgent
Troponin I Urgent
Abnormal Lab Results
10/28/23
21:30
RBC 4.16 L 10^6/uL
(4.20-5.40)
MCH 31.7 H pg
(27.0-31.0)
MPV 11.7 H fL
(7.4-10.4)
Absolute Monos (auto) 0.8 H 10^3/uL
(0.1-0.6)
Monocytes % 10.1 H %
(1.7-9.3)
Eosinophils % 6.8 H %
(0-6)
Sodium 134 L mmol/L
(135-145)
BUN 19 H mg/dl
(7-17)
Glucose 106 H mg/dl
(70-99)
10/28/23 21:30
10/28/23 21:30
Vital Signs
Blood pressure: 145/95
Initial and Last Documented VS:
Initial Vital Signs
Temp Pulse Resp BP Pulse Ox
36.8 C 69 18 186/85 98
10/28/23 20:40 10/28/23 20:40 10/28/23 20:40 10/28/23 20:40 10/28/23 20:40
Last Documented Vital Signs
Temp Pulse Resp BP Pulse Ox
36.8 C 69 18 145/95 98
10/28/23 20:40 10/28/23 20:40 10/28/23 20:40 10/28/23 21:54 10/28/23 22:05
MDM/Problems Addressed
Differential Diagnosis Includes:
Hypertension
MDM/Problems Addressed:
83-year-old female presents to the emergency room for evaluation of asymptomatic hypertension�she just had an admission for hypertensive urgency and says that she has been checking her blood pressure quite frequently at home and has had some very
high values. She is asymptomatic here. She was hypertensive in triage to 186/85 from my assessment in the room her blood pressure is 145/95. Her vital signs. Her exam is benign. Will plan to check basic labs that she was due for follow-up CBC
as well as a follow-up BMP with her prior NANCY. Will check EKG as well as a troponin�shalbert says that she will occasionally get a mild discomfort that could be related to anxiety although she denies any chest pain here. Her troponin was marginally
elevated previously. Will monitor blood pressure for the time being reassess after the above.
Labs reviewed: CBC unremarkable, CMP shows normal creatinine no clinically significant abnormalities. Her troponin is undetectable today. Clinical reassessment her blood pressure remains normal to slightly elevated here�blood pressure currently
150/80. I think there is a strong component of anxiety related to her high blood pressure�she has been checking it very frequently at home and says that she does get significant anxiety about it. She seems to have had significant improvement of
blood pressure and the reassuring setting of the emergency room. I am hesitant to adjust her blood pressure medication to a higher dose in the emergency room as she does not have significant symptoms and I suspect her blood pressure when not
fixated on it may improve or even drop slightly julita has had occasional dizziness since adjusting her medications in the hospital she says. Concern for overcorrection in the setting of anxiety induced hypertension. I had a long discussion with
the patient and discussed the options�I discussed that we could increase her blood pressure medicine here versus some watchful waiting. She feels comfortable with holding off on adjustment of the medication for the time being. Advised to check her
blood pressure once a day at around the same time after resting for about 10 minutes in a seated position. Advised to record these measurements and follow-up with her doctor within the next 5 to 7 days to have her blood pressure rechecked, to
discuss her blood pressure readings over that period time, as well as to check the accuracy of her home blood pressure cuff (unfortunately she does not have it with her here in the emergency room). She feels comfortable with this plan. I did
advise her to return if she has any symptoms. I do not think there is any clear indication for admission to the hospital at this point in time will discharge with follow-up plan as above.
Prior to discharge patient did ask for something to take if her anxiety becomes severe�jose de jesus says that when she checks her blood pressure sometimes she becomes very anxious and she feels this makes her blood pressure worse. Advised her that this is
not a good long-term solution but will prescribe a very short course to take only as needed if she has severe anxiety and she will talk to her doctor about this more on follow-up.
Chronic conditions affecting care:
Hypertension, anxiety
Acute Exacerbation and/or Progression of Chronic Illness:
Acutely hypertensive improved without intervention
Acute Exacerbation and/or Progression of Chronic Illness: HTN
*Pulse Oximetry
Patient hypoxic: no
*EKG
Interpreted by ED Provider?: Yes
Heart Rate: 63
Rate: normal
Rhythm: sinus
[place]: normal axis
Interval: normal interval
QRS Pattern: normal QRS
Ischemia: no ischemia
*Critical Care Note
Total Time (30-74mins, 75-104mins- exclusive of procedures): Not Applicable
Data Reviewed
Source: patient, records and family
Prescriptions/Medications Considered But Not Given:
Considered adjusting blood pressure medications as above including increasing dose of amlodipine or hydralazine
Patient Management
Social determinants of health affecting care: Strong social support
Escalation/DeEscalation of care consider admission/obs:
Considered admission for further blood pressure medication adjustment but after long discussion with the patient significant improvement here without intervention ultimately decided for an outpatient follow-up plan as documented above
ED Attending Note
-
Portions of this chart may have been created with voice recognition software.� Occasional wrong word or��sound alike� substitutions may have occurred due to the inherent limitations of voice recognition software.
Discharge Plan
Departure
Patient Disposition: Home (Routine Discharge)
Date of Disposition: 10/28/23
Time of Disposition: 23:21
Patient with high blood pressure during this ER visit?: Yes
Discharge Problem:
Hypertension
Instructions: High Blood Pressure (DC)
Prescriptions:
New
lorazepam [Ativan] 0.5 mg tablet
0.5 mg PO DAILY PRN (Reason: anxiety) Qty: 5 0RF
No Action
levothyroxine 75 MCG tablet
75 mcg PO DAILY
brimonidine [Alphagan P] 10 ML drops
1 drp BOTH EYES BID
montelukast 10 mg Tablet
10 mg PO HS
ezetimibe 10 mg Tablet
10 mg PO DAILY
hydralazine 25 mg Tablet
25 mg PO TID 30 Days Qty: 90 0RF
amlodipine 5 mg Tablet
5 mg PO DAILY 30 Days Qty: 30 0RF
aspirin [Children's Aspirin] 81 mg Tablet,Chewable
81 mg PO DAILY 30 Days Qty: 30 0RF
Referrals:
UNKNOWN,NO INTERVIEW [Unknown Provider] -
Activity Restrictions/Additional Instructions:
Thank you for visiting the Emergency Department at [facility].
1. Please schedule a follow up appointment as directed. Call first thing tomorrow morning to make an appointment.
2. If indicated, please take your medications as instructed and indicated on discharge paperwork.
3. If any of your symptoms do not improve, or persist, or become more severe within 6-12 hours, please return to the emergency department for further care.
4. Please return to the emergency department if you develop a headache, neck pain/stiffness, fever greater than 100.4F, chest pain, shortness of breath, persistent nausea, vomiting, slurred speech, difficulty walking, numbness/tingling, weakness,
signs of infection or any other symptoms that are worrisome to you.
Please call [phone] if you have any questions.
Interventions
Interventions:
*Risk Screen - Suicide Last Done: 10/28/23 20:40
*General Assessment Last Done: 10/28/23 20:40
*Neglect/Abuse Screening Last Done: 10/28/23 20:40
ED- Fall Risk Assessment Last Done: 10/28/23 22:05
*ED COVID-19 Vaccine History Last Done: 10/28/23 22:05
ED- Cardiac Assessment Last Done: 10/28/23 22:05
ED- Neurological Assessment Last Done: 10/28/23 22:05
ED- Pulmonary Assessment Last Done: 10/28/23 22:05
[2023-10-28 21:57] LABS: ALT (SGPT) 31 U/L (0-35); AST (SGOT) 31 U/L (14-36); Albumin 4.2 g/dl (3.5-5.0); Alkaline Phosphatase 63 U/L (38-126); Blood Urea Nitrogen 19 mg/dl (7-17); Calcium 9.3 mg/dl (8.4-10.2); Carbon Dioxide 25 mmol/L (22-30); Chloride 104 mmol/L (98-107); Estimated Creatinine Clearance 43 ml/min; Glucose 106 mg/dl (70-99); Potassium 4.4 mmol/L (3.5-5.1); Sodium 134 mmol/L (135-145); Total Bilirubin 0.5 mg/dl (0.2-1.3); Total Protein 6.8 g/dl (6.3-8.2)
[2023-10-28 22:08] LABS: Troponin I < 0.012 ng/ml
[2023-10-28 23:28] VITALS: BP 158/84
== END 2023-10-28 23:52 | disposition home or self-care (01) ==
LOC: EMR 20:34
PROVIDERS: EMERGENCY PHYSICIAN Emergency Medicine; FAMILY PHYSICIAN Emergency Medicine
DX: I10 Essential (primary) hypertension (principal); R42 Dizziness and giddiness; R07.89 Other chest pain; F41.9 Anxiety disorder, unspecified; E78.5 Hyperlipidemia, unspecified; J45.909 Unspecified asthma, uncomplicated; M19.90 Unspecified osteoarthritis, unspecified site; E03.9 Hypothyroidism, unspecified; H40.9 Unspecified glaucoma; Z85.828 Personal history of other malignant neoplasm of skin; Z79.82 Long term (current) use of aspirin; Z88.1 Allergy status to other antibiotic agents
CPT/HCPCS: 99283; 80053; 84484; 85025; 93005

== ENCOUNTER → 2024-11-13 09:24 | Outpatient (REF) | payer MEDICARE, OTHER, SELFPAY | LOC: HWRAD 09:24 | PROVIDERS: ATTENDING PHYSICIAN Physician Assistant; FAMILY PHYSICIAN Emergency Medicine | DX: M54.16 Radiculopathy, lumbar region (principal) | CPT/HCPCS: 72131 ==

== ENCOUNTER 2025-08-24 20:22 | Emergency (ER) | payer MEDICARE, OTHER, SELFPAY ==
[2025-08-24 20:29] VITALS: BP 201/92
[2025-08-24 20:49] LABS: Hematocrit 41.5 % (37.0-47.0); Hemoglobin 14.1 g/dL (12.0-16.0); Mean Corp Hgb Conc. 34.0 g/dL (33.0-37.0); Mean Corpuscular Volume 93.7 fL (81.0-99.0); Nucleated Red Blood Cells % 0 %; Platelet Count 212 10^3/uL (130-400); Red Cell Dist. Width 13.6 % (11.5-14.5)
[2025-08-24 21:09] LABS: ALT (SGPT) 23 U/L (0-35); AST (SGOT) 25 U/L (14-36); Albumin 4.6 g/dl (3.5-5.0); Alkaline Phosphatase 53 U/L (38-126); Blood Urea Nitrogen 17 mg/dl (7-17); Calcium 10.0 mg/dl (8.4-10.2); Carbon Dioxide 30 mmol/L (22-30); Chloride 102 mmol/L (98-107); Glucose 132 mg/dl (70-99); Potassium 4.4 mmol/L (3.5-5.1); Sodium 137 mmol/L (135-145); Total Protein 7.4 g/dl (6.3-8.2); eGFR > 60.00
[2025-08-24 23:45] VITALS: BP 197/103
[2025-08-25] VITALS: BP 171/83
[2025-08-25 00:06] VITALS: BMI 27.3
[2025-08-25 01:00] VITALS: BP 161/77
--- NOTE | 2025-08-25 01:48 | ED.GENMED ---
History of Present Illness
General
Chief Complaint: Blood Pressure Problem
Source: patient
Exam Limitations: none
Time Seen by Provider: 08/24/25 23:43
Nursing documentation reviewed up to this point in time: agreed with
History of Present Illness
History of Present Illness:
85-year-old female past medical history of hypertension hyperlipidemia presenting to the emergency department today with concerns of elevated blood pressure and feeling 'funny' throughout the evening. She is currently on blood pressure medications
no recent changes no chest pain shortness of breath numbness weakness or changes in vision. No severe headache
Past History
Past History
ED Past Medical History: Other (Hypertension, previous hernia repair, hyperlipidemia)
Social History
Tobacco: Non-smoker
Alcohol: Occasional
Employment: Employed
Family History
Family History: CAD
Review of Systems
Review of Systems
Allergies reviewed?: Yes
All Other Systems: ROS reviewed and negative except as documented in HPI and ROS
Phy Exam
Physical Exam
Physical Exam:
GENERAL: Alert , in no apparent distress
EYE: pupils equal and reactive
NECK: Supple, no significant adenopathy.
ENT: o/p clr, mmm.
CARDIAC: Regular rate and rhythm .
LUNGS: Clear breath sounds bilaterally, no acute respiratory distress, no wheezes/rales/rhonchi
ABDOMEN: Soft, without focal tenderness, no r/g, no cvat
NEUROLOGICAL: Alert and oriented, no focal neuro deficits
SKIN: Warm and dry, skin intact.
MUSCULOSKELETAL: No edema, well perfused.
PSYCH: Normal and appropriate interaction.
Course
Orders/Labs/Results
Orders:
Orders
08/24/25 20:32
EKG [Electrocardiogram (*1)] Urgent
Reason for Study: Vertigo / Dizzy
EKG- Treatment ONCE
08/24/25 20:38
Complete Blood Count/With Diff Urgent
Comprehensive Metabolic Panel Urgent
08/25/25 00:43
EKG [Electrocardiogram (*1)] Urgent
Reason for Study: Palpitations
EKG- Treatment ONCE
Abnormal Lab Results
08/24/25
20:38
MCH 31.8 H pg
(27.0-31.0)
MPV 10.7 H fL
(7.4-10.4)
Absolute Monos (auto) 0.7 H 10^3/uL
(0.1-0.6)
Monocytes % 9.9 H %
(1.7-9.3)
Glucose 132 H mg/dl
(70-99)
08/24/25 20:38
08/24/25 20:38
Vital Signs
Initial and Last Documented VS:
Initial Vital Signs
Temp Pulse Resp BP Pulse Ox
98.9 F 75 18 201/92 98
08/24/25 20:29 08/24/25 20:29 08/24/25 20:29 08/24/25 20:29 08/24/25 20:29
Last Documented Vital Signs
Temp Pulse Resp BP Pulse Ox
98.9 F 62 20 161/77 100
08/24/25 20:29 08/25/25 01:45 08/25/25 01:45 08/25/25 01:00 08/25/25 01:49
MDM/Problems Addressed
MDM/Problems Addressed:
85-year-old female presenting with concerns of elevated blood pressure at home. Here initially blood pressure elevated but improving to 160 over 70s without specific treatment. Labs unremarkable patient in no distress EKG without acute findings.
Patient without evidence of emergency. Advised for close outpatient follow-up. Return precautions given.
*Pulse Oximetry
SaO2: 100
Oxygen Mode of Delivery: Room air
Patient hypoxic: no (100)
*Critical Care Note
Total Time (30-74mins, 75-104mins- exclusive of procedures): Not Applicable
ED Attending Note
-
Portions of this chart may have been created with voice recognition software.� Occasional wrong word or��sound alike� substitutions may have occurred due to the inherent limitations of voice recognition software.
Discharge Plan
Departure
Patient Disposition: Home (Routine Discharge)
Date of Disposition: 08/25/25
Time of Disposition: 01:48
Patient with high blood pressure during this ER visit?: Yes
Condition: Good
Covid-19: Not Applicable
Discharge Problem:
Sinus headache, HTN (hypertension)
Instructions: BLOOD PRESSURE
Prescriptions:
New
fluticasone propionate [Flonase Allergy Relief] 50 mcg/actuation spray,suspension
1 spray intranasal BID Qty: 16 0RF
No Action
levothyroxine 75 MCG tablet
75 mcg PO DAILY
brimonidine [Alphagan P] 10 ML drops
1 drp BOTH EYES BID
montelukast 10 mg Tablet
10 mg PO HS
ezetimibe 10 mg Tablet
10 mg PO DAILY
hydralazine 25 mg Tablet
25 mg PO TID 30 Days Qty: 90 0RF
amlodipine 5 mg Tablet
5 mg PO DAILY 30 Days Qty: 30 0RF
aspirin [Children's Aspirin] 81 mg Tablet,Chewable
81 mg PO DAILY 30 Days Qty: 30 0RF
lorazepam [Ativan] 0.5 mg tablet
0.5 mg PO DAILY PRN (Reason: anxiety) Qty: 5 0RF
Referrals:
Noemi Colbert CRNP [Family Provider, Family Practice]
Activity Restrictions/Additional Instructions:
You came to the emergency department today with concerns of elevated blood pressure. Here this was improving during ER stay. Please use the nasal spray and follow-up closely with cardiology for further management. Return for any worsening, new or
concerning symptoms.
Interventions
Interventions:
*Risk Screen - Suicide Last Done: 08/24/25 20:29
*General Assessment Last Done: 08/24/25 20:29
*Neglect/Abuse Screening Last Done: 08/24/25 20:29
*ED- Fall Risk Assessment Last Done: 08/24/25 20:29
*ED COVID-19 Vaccine History Last Done: 08/24/25 20:29
*ED Influenza Vaccine History Last Done: 08/24/25 20:29
*Nursing Disposition Last Done: 08/25/25 01:56
ED- Cardiac Assessment Last Done: 08/25/25 00:08
ED- Neurological Assessment Last Done: 08/25/25 00:08
ED- Pulmonary Assessment Last Done: 08/25/25 00:08
Discharge Date and Time
Discharge Date/Time: 08/25/25 02:08
Print Language: [id number]
== END 2025-08-25 02:08 | disposition home or self-care (01) ==
LOC: EMR 20:22
PROVIDERS: Emergency Medicine; EMERGENCY PHYSICIAN Emergency Medicine; FAMILY PHYSICIAN Nurse Practitioner Family
DX: R51.9 Headache, unspecified (principal); I10 Essential (primary) hypertension; E78.5 Hyperlipidemia, unspecified; Z82.49 Family history of ischemic heart disease and other diseases of the circulatory system
CPT/HCPCS: 99284; 80053; 85025; 93005